=== PATIENT | female | born 1970 | race Caucasian/White ===

== ENCOUNTER 2018-08-27 15:18 | Emergency (ER) | payer OTHER ==
--- NOTE | 2018-08-27 16:32 | RAD ---
Left elbow 4 views HISTORY: Left elbow injury. FINDINGS: Radiocapitellar alignment is maintained. No acute fracture, dislocation, or fluid distentio n of the joint capsule. IMPRESSION: No acute osseous abnormalities are demonstrated.
== END 2018-08-27 17:01 | disposition home or self-care (01) ==
LOC: ERS 15:18
DX: S50.02XA Contusion of left elbow, initial encounter (principal); E03.9 Hypothyroidism, unspecified; F32.9 Major depressive disorder, single episode, unspecified; W18.30XA Fall on same level, unspecified, initial encounter; Y92.149 Unspecified place in prison as the place of occurrence of the external cause